=== PATIENT | male | born 1965 | race Caucasian/White ===

== ENCOUNTER → 2023-05-20 13:43 | Outpatient (BNVA) | payer OTHER, SELFPAY | PROVIDERS: PCP Internal Medicine Sports Medicine; Visit Provider Nurse Practitioner Family ==

== ENCOUNTER 2023-06-17 13:06 | Outpatient (REF) | payer OTHER, SELFPAY ==
--- NOTE | ~2023-06-17 | US_ITS ---
EXAMINATION: US RETROPERITONEAL LIMITED (RENAL ONLY) CLINICAL INFORMATION: Calculus of kidney. COMPARISON: None available. TECHNIQUE: Real-time imaging of the kidneys. FINDINGS: RIGHT KIDNEY: 15.0 x 6.5 x 7.6 cm (SAG x AP x TRV). The kidney is normal in size, contour, and echogenicity. Renal cortical thickness is normal. No calculi or focal parenchymal lesions. No hydronephrosis. LEFT KIDNEY: 13.8 x 5.9 x 5.0 cm (SAG x AP x TRV). Severe left hydroureteronephrosis with severe cortical thinning. No nephrolithiasis or focal parenchymal lesion. OTHER: Incidental note is made of sludge and stones within the gallbladder is suboptimally evaluated on this renal ultrasound. US/US renal BI IMPRESSION: 1. Severe left hydroureteronephrosis with severe cortical thinning. No nephrolithiasis appreciated. 2. Incidental note is made of sludge and stones within the gallbladder is suboptimally evaluated on this renal ultrasound.
== END 2023-06-17 13:07 | disposition home or self-care (01) ==
LOC: HO.US 13:06
PROVIDERS: PCP Internal Medicine Sports Medicine; Visit Provider Nurse Practitioner Family
DX: N20.0 Calculus of kidney (principal)
CPT/HCPCS: 76775

== ENCOUNTER 2023-07-01 14:04 | Outpatient (AMB) | payer OTHER, SELFPAY ==
--- NOTE | 2023-07-01 14:15 | A.OFFVIS_ITS ---
Intake Intake Visit Reasons: 1m/US(set) Intake Note: Patient present today for follow up visit nephrolithiasis/ultrasound (imaging 06/17/23) Urology Medications: none Blood Thinner: aspirin Mail Examiner Required: No Accompanied by: Self / Same As Patient Allergies No Known Allergies Allergy (Verified 07/02/23 10:29) Medication List - Last Reconciled 07/02/23 by Cathryn Ordoñez [facility]- allopurinol 300 mg PO DAILY aspirin 325 mg PO DAILY atenolol 100 mg PO DAILY atorvastatin 10 mg PO DAILY dulaglutide (Trulicity) 1.5 mg subcut QWEEK fluticasone propionate 50 mcg/actuation 1 spray intranasal BID levothyroxine 100 mcg PO QAM lisinopril 20 mg PO DAILY magnesium oxide 400 mg PO DAILY metformin 1,000 mg PO DAILY sitagliptin phosphate (Januvia) 100 mg PO DAILY spironolactone 12.5 mg PO DAILY HPI HPI Comments History of Present Illness Details Kit is a very pleasant 58-year-old male patient of Dr. Fairchild. He has a PMH of Castaneda's palsy, hypertension, GERD, gout, anxiety, hyperlipidemia, kidney stones, obesity, diabetes type 2, vitamin-D deficiency and peripheral neuropathy. He presents to the office today for a follow up. Of note, patient was seen approximately one month as a new patient for his longstanding history of nephrolithiasis at which time a renal ultrasound was ordered for further assessment evaluation. These results reviewed with the patient today. Right kidney with no calculi, lesions, and or hydronephrosis. Left kidney with no calculi and or lesions. However severe left hydrouretern ephrosis is present with sever cortical thinning. In discussion with the patient today he reports to be doing and feeling well. Patient reports previously following up with Dr. Mathis many years ago for his longstanding history of nephrolithiasis. He reports having had a left ESWL in the past and subsequently has lost most if not all renal function to his left kidney. He reports following up with Dr. Haley recently and it states right kidney is functioning at approximately 60% and left kidney functions at approximately 5%. He discusses having lost weight over the last year. He currently denies any urinary issues or concerns. He otherwise denies incontinence, nocturia, hematuria, dysuria, foul smelling urine, changes to urinary stream, flank pain, fever, and or chills. He does however report urinary urgency and frequency however does not find this bothersome to him at this time. He is happy with his current voiding parameters. When asked he reports to be following his PSAs with his primary care doctor. He reports previously having his PSA checked in September and it being within normal limits. In office urinalysis results reviewed with the patient today. Discussed workup for hydronephrosis as patient is unsure if he has had this in the past. Discussed obtaining nuclear renal scan for further assessment and evaluation. Patient is agreeable. He otherwise denies any issues or concnerns. 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 GERD (gastroesophageal reflux disease) Gout Hyperlipidemia Hypertension Obesity Peripheral neuropathy Recurrent kidney stones Vitamin D deficiency Review of Systems Const Reports as per HPI Eyes Reports no additional complaints ENT Reports no additional complaints Card Reports as per HPI Resp Reports no additional complaints GI Reports as per HPI Reports as per HPI Musc Reports no additional complaints Neuro Reports as per HPI Psych Reports as per HPI Endo Reports as per HPI Physical Exam Const General: cooperative, healthy appearing, comfortable, no acute distress, well developed, alert and awake Nutritional Appearance: overweight Orientation/consciousness: patient oriented x3 Limitations: no limitations HEENT Head: Yes normal to inspection, Yes normocephalic and Yes atraumatic Ears: hearing grossly normal bilaterally Eyes General: appearance normal, both eyes and all related structures Neck Neck: Yes normal visual inspection and Yes trachea midline Chest Chest palpation & inspection: normal inspection of the chest Resp Effort & Inspection: normal respiratory effort and able to speak in complete sentences Cardio Rate: regular rate GI Inspection: Yes normal to inspection General: Yes no CVA tenderness Back/Spine/Pelvis Back: no CVA tenderness Skin General skin exam: no rashes or lesions noted Neuro General: patient oriented x3 Extrem General: Yes normal to inspection Psych Appearance: grossly normal and well kempt Mental Status: mental status grossly normal Speech and movement: Normal speech and movement present and Clear speech present Affect: normal affect Attitude: cooperative Thought process: Normal thought process present Thought content: Normal thought content present Insight: Good insight present (Psych) Judgement: Good judgement present (Psych) Results AMB Urinalysis, Automated UA Leukoctes 0 Jose/uL Last Edit by AdTotumrosanna on 07/01/23 14:29 UA Nitrite Last Edit by AdTotumrosanna on 07/01/23 14:29 UA Urobilinogen 0.2 mg/dL Last Edit by EXPOlexi [employer] on 07/01/23 14:29 UA Protein 0 mg/dL Last Edit by AdTotumrosanna on 07/01/23 14:29 UA pH 6.0 Last Edit by AdTotumrosanna on 07/01/23 14:29 UA Blood 0 Nahum/uL Last Edit by EXPOe [employer] on 07/01/23 14:29 UA Specific [place] 1.020 Last Edit by [employer] on 07/01/23 14:29 UA Ketone Last Edit by AdTotumrosanna on 07/01/23 14:29 UA Bilirubin 0 mg/dL Last Edit by AdTotumrosanna on 07/01/23 14:29 UA Glucose 0 mg/dL Last Edit by AdTotumrosanna on 07/01/23 14:29 Results Reviewed Results Reviewed: Laboratory Last Values Urine pH (Auto) 6.0 07/01/23 14:16 Specific [place] (Auto) 1.020 07/01/23 14:16 Urine Protein (Auto) 0 mg/dL 07/01/23 14:16 Glucose (UA)(Auto) 0 mg/dL 07/01/23 14:16 Urine Blood (Auto) 0 Nahum/uL 07/01/23 14:16 Urine Bilirubin (Auto) 0 mg/dL 07/01/23 14:16 Urine Urobilinogen (Auto) 0.2 mg/dL 07/01/23 14:16 Leukocyte Esterase (Auto) 0 Jose/uL 07/01/23 14:16 Date of Service: 06/17/23 EXAMINATION: US RETROPERITONEAL LIMITED (RENAL ONLY) FINDINGS: RIGHT KIDNEY: 15.0 x 6.5 x 7.6 cm (SAG x AP x TRV). The kidney is normal in size, contour, and echogenicity. Renal cortical thickness is normal. No calculi or focal parenchymal lesions. No hydronephrosis. LEFT KIDNEY: 13.8 x 5.9 x 5.0 cm (SAG x AP x TRV). Severe left hydroureteronephrosis with severe cortical thinning. No nephrolithiasis or focal parenchymal lesion. OTHER: Incidental note is made of sludge and stones within the gallbladder is suboptimally evaluated on this renal ultrasound. IMPRESSION: 1.? Severe left hydroureteronephrosis with severe cortical thinning. No nephrolithiasis appreciated. 2.? Incidental note is made of sludge and stones within the gallbladder is suboptimally evaluated on this renal ultrasound. Assessment & Plan Assessment & Plan (1) Hydronephrosis: Code(s): N13.30 - Unspecified hydronephrosis (2) Recurrent kidney stones: Code(s): N20.0 - Calculus of kidney Plan In office urinalysis results reviewed with the patient today; as noted above. Recent renal ultrasound results reviewed with the patient today; as noted above. Will obtain nuclear renal scan for further assessment evaluation of noted severe left-sided hydronephrosis. Discussed at length potential causes for hydronephrosis. Will obtain BUN and creatinine. Patient otherwise denies any bothersome urinary issues or concerns at this time. Discussed, educated, and encouraged on the importance of drinking plenty of water daily. Discussed adding 1 oz of lemon juice to water daily. Follow-up in 1 month with imaging to be completed prior or sooner with any issues, concerns, and or questions. Orders: Orders NM renal flow w pharm int 07/01/23 N13.30 - Unspecified hydronephrosis Blood Urea Nitrogen 07/01/23 R39.15 - Urgency of urination Creatinine 07/01/23 R39.15 - Urgency of urination AMB Urinalysis Automated 07/01/23 Z13.9 - Encounter for screening, unspecified Patient Instructions: The patient had an opportunity to ask questions regarding the treatment plan. All questions were answered. Physical exam, labs, and imaging were discussed and reviewed in detail. As well as risks, benefits, and discussion of treatment choices. No major barriers to understanding were identified. The patient expressed understanding and agreement with the above treatment plan. The patient was made aware they should contact our office by phone for worsening of their current condition, the appearance of new symptoms, or with any questions or concerns. Compliance is encouraged with any medications and follow up testing that is ordered. It is a privilege to be allowed the opportunity to participate in? your urological care.? Again, if you have any questions or concerns If you have any questions or concerns please do not hesitate to contact me. The office is [phone]. This note is constructed using voice recognition software. While every effort has been made to ensure accuracy computer field technician errors may have been included. Yours sincerely, LINDA Fair Coding Level of Care Code Est Pt Level 3 (39462) Diagnoses Hydronephrosis N13.30 Recurrent kidney stones N20.0
== END 2023-07-01 14:46 | disposition home or self-care (01) ==
PROVIDERS: PCP Internal Medicine Sports Medicine; Visit Provider Nurse Practitioner Family
DX: N13.30 Unspecified hydronephrosis (principal); N20.0 Calculus of kidney
CPT/HCPCS: 99213

== ENCOUNTER → 2023-07-01 14:04 | Outpatient (BNVA) | payer OTHER, SELFPAY | PROVIDERS: PCP Internal Medicine Sports Medicine; Visit Provider Nurse Practitioner Family ==

== ENCOUNTER → 2023-09-08 10:40 | Outpatient (REF) | payer OTHER, SELFPAY ==
--- NOTE | ~2023-09-08 | NM_ITS ---
EXAMINATION: RENAL DYNAMIC IMAGING STUDY CLINICAL INFORMATION: Unspecified hydronephrosis. COMPARISON: No previous bone scan or radiographs are available for comparison. Renal ultrasound dated 06/17/2023 is available for comparison. TECHNIQUE: Serial gamma scintillation camera images were obtained over the posterior trunk during the initial transit and subsequent distribution of a bolus intravenous injection of 10 mCi of Tc-99m DTPA. At 30 minutes later, 40 mg of Lasix was administered intravenously and an additional 30 minutes of images obtained. FINDINGS: Initial rapid sequence images show prompt and normal-appearing flow to the right kidney. Flow to the left kidney is not definitely visualized. Subsequent sequential static images obtained up to 30 minutes show good concentration in the right kidney. The left kidney is not definitely visualized at any time during the study. There is evidence of excretory function by 3 minutes post injection on the right and shortly thereafter some urinary bladder activity is visualized. At 30 minutes post injection almost all the excretory activity is in the urinary bladder. There is no abnormal retention in the right renal collecting system and there continues to be no visualization of the left kidney. There is transient retention of activity in the mid right ureter, probably at the pelvic inlet beginning at about 8 to 10 minutes post injection and completely washed out by 20 minutes post injection. Following Lasix administration, there is continued clearance of activity from the right kidney and filling of the urinary bladder but no change in the nonvisualization of the left kidney. Meaningful T-1/2 washout times following Lasix administration cannot be calculated on either side. On the left no excretory function is visualized, and on the right there is insufficient retention in the right renal collecting system at the time of Lasix administration. The relative function of the two kidneys based on the 2-3 minute images are: Left 0% and right 100%. NM/NM renal flow w pharm int IMPRESSION: LEFT KIDNEY: Absent or nonfunctioning. No significant flow or function of the left kidney is visualized. RIGHT KIDNEY: Normal perfusion and function. No hydronephrosis or outflow obstruction.
== END ==
LOC: HO.NUCMED 10:40
PROVIDERS: PCP Internal Medicine Sports Medicine; Visit Provider Nurse Practitioner Family
DX: N13.30 Unspecified hydronephrosis (principal)
CPT/HCPCS: 78708; A9539; J1940

== ENCOUNTER 2023-09-15 06:18 | Outpatient (REF) | payer OTHER, SELFPAY ==
[2023-09-15 07:53] LABS: Blood Urea Nitrogen 33 mg/dL (9-16); Estimated Glomerular Filt Rate 49
== END 2023-09-15 06:19 | disposition home or self-care (01) ==
LOC: HO.LAB 06:18
PROVIDERS: PCP Internal Medicine Sports Medicine; Visit Provider Nurse Practitioner Family
DX: R39.15 Urgency of urination (principal)
CPT/HCPCS: 36415; 82565; 84520

== ENCOUNTER 2023-09-16 10:03 | Outpatient (AMB) | payer OTHER, SELFPAY ==
--- NOTE | 2023-09-16 10:23 | A.OFFVIS_ITS ---
Intake Intake Visit Reasons: 1m/US/labs Intake Note: Patient present today for follow up visit hydronephrosis/renal scan (imaging 09/08/23) Urology Medications: none Blood Thinner: aspirin Vamp Strap Ironer Required: No Accompanied by: Self / Same As Patient Allergies No Known Allergies Allergy (Verified 09/17/23 08:30) Medication List - Last Reconciled 09/17/23 by Cathryn Ordoñez [facility]- allopurinol 300 mg PO DAILY aspirin 325 mg PO DAILY atenolol 100 mg PO DAILY atorvastatin 10 mg PO DAILY dulaglutide (Trulicity) 1.5 mg subcut QWEEK fluticasone propionate 50 mcg/actuation 1 spray intranasal BID levothyroxine 100 mcg PO QAM lisinopril 20 mg PO DAILY magnesium oxide 400 mg PO DAILY metformin 1,000 mg PO DAILY sitagliptin phosphate (Januvia) 100 mg PO DAILY spironolactone 12.5 mg PO DAILY HPI HPI Comments History of Present Illness Details Kit is a very pleasant 58-year-old male patient of Dr. Fairchild was accompanied by his significant other at today's office visit. He has a PMH of Castaneda's palsy, hypertension, GERD, gout, anxiety, hyperlipidemia, kidney stones, obesity, diabetes type 2, vitamin-D deficiency and peripheral neuropathy. He presents to the office today for a follow up. Of note, patient was seen approximately 2 months ago at which time a nuclear renal scan was ordered and performed as recent renal imaging results noted severe left-sided hydronephrosis. These results were reviewed with the patient and his significant other today. The relative function of the 2 kidneys based on a 2-3 minute images are: Left 0% and right 100%. The left kidney is absent or nonfunctioning. No significant flow or function of the kidney is visualized. The right kidney with normal perfusion and function no hydronephrosis or outflow obstruction. BUN and creatinines as follows: 03/30/22--BUN--25, creatinine--1.1 09/15/23--BUN--33, creatinine 1.48 When asked patient reports to be following up with Dr. Haley for nephrology. He discusses following up with him atleast annually. Discussed at length results of nuclear renal scan. Patient reports following up with Dr. Mathis previously for his longstanding history of nephrolithiasis. He reports having had a left ESWL in the past and subsequently has lost most if not all renal function to his left kidney. He reports following up with Dr. Haley recently and was told his right kidney is functioning at approximately 60% and left kidney functions at approximately 5%. He discusses having lost weight over the last year. He currently denies any urinary issues or concerns. He otherwise denies incontinence, nocturia, hematuria, dysuria, foul smelling urine, changes to urinary stream, flank pain, fever, and or chills. He does however report urinary urgency and frequency however does not find this bothersome to him at this time and relates this to his increase in water intake as he drinks plenty of water daily for stone prevention. He is happy with his current voiding parameters. When asked he reports to be following his PSAs with his primary care doctor. He reports previously having his PSA checked in September and it being within normal limits. In office urinalysis results reviewed with the patient today. Discussed at length importance of following up with Nephrology and keeping scheduled appointments as well as continuing to drink plenty of water daily in attempt to avoid nephrolithiasis. He otherwise denies any bothersome urinary issues or concerns at this time. 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 GERD (gastroesophageal reflux disease) Gout Hyperlipidemia Hypertension Obesity Peripheral neuropathy Recurrent kidney stones Vitamin D deficiency Review of Systems Const Reports as per HPI Eyes Reports no additional complaints ENT Reports no additional complaints Card Reports as per HPI Resp Reports no additional complaints GI Reports as per HPI Reports as per HPI Musc Reports no additional complaints Neuro Reports as per HPI Psych Reports as per HPI Endo Reports as per HPI Physical Exam Const General: cooperative, healthy appearing, comfortable, no acute distress, well developed, alert and awake Nutritional Appearance: overweight Orientation/consciousness: patient oriented x3 Limitations: no limitations HEENT Head: Yes normal to inspection, Yes normocephalic and Yes atraumatic Ears: hearing grossly normal bilaterally Eyes General: appearance normal, both eyes and all related structures Neck Neck: Yes normal visual inspection and Yes trachea midline Chest Chest palpation & inspection: normal inspection of the chest Resp Effort & Inspection: normal respiratory effort and able to speak in complete sentences Cardio Rate: regular rate GI Inspection: Yes normal to inspection General: Yes no CVA tenderness Back/Spine/Pelvis Back: no CVA tenderness Skin General skin exam: no rashes or lesions noted Neuro General: patient oriented x3 Extrem General: Yes normal to inspection Psych Appearance: grossly normal and well kempt Mental Status: mental status grossly normal Speech and movement: Normal speech and movement present and Clear speech present Affect: normal affect Attitude: cooperative Thought process: Normal thought process present Thought content: Normal thought content present Insight: Good insight present (Psych) Judgement: Good judgement present (Psych) Results AMB Urinalysis, Automated UA Leukoctes 0 Jose/uL Last Edit by VitaFlavor on 09/16/23 11:02 UA Nitrite Negative Last Edit by VitaFlavor on 09/16/23 11:02 UA Urobilinogen 0.2 mg/dL Last Edit by VitaFlavor on 09/16/23 11:02 UA Protein 15 mg/dL Last Edit by [employer]itaFlavor on 09/16/23 11:02 UA pH 5.5 Last Edit by [employer]itaFlavor on 09/16/23 11:02 UA Blood 0 Nahum/uL Last Edit by VitaFlavor on 09/16/23 11:02 UA Specific [place] 1.025 Last Edit by VitaFlavor on 09/16/23 11:02 UA Ketone Negative Last Edit by VitaFlavor on 09/16/23 11:02 UA Bilirubin 0 mg/dL Last Edit by [employer] on 09/16/23 11:02 UA Glucose 0 mg/dL Last Edit by [employer]itaFlavor on 09/16/23 11:02 Results Reviewed Results Reviewed: Laboratory Last Values Urine pH (Auto) 5.5 09/16/23 11:01 Specific [place] (Auto) 1.025 09/16/23 11:01 Urine Protein (Auto) 15 mg/dL 09/16/23 11:01 Glucose (UA)(Auto) 0 mg/dL 09/16/23 11:01 Urine Ketones (Auto) Negative 09/16/23 11:01 Urine Blood (Auto) 0 Nahum/uL 09/16/23 11:01 Urine Nitrite (Auto) Negative 09/16/23 11:01 Urine Bilirubin (Auto) 0 mg/dL 09/16/23 11:01 Urine Urobilinogen (Auto) 0.2 mg/dL 09/16/23 11:01 Leukocyte Esterase (Auto) 0 Jose/uL 09/16/23 11:01 Date of Service: 09/08/23 EXAMINATION: RENAL DYNAMIC IMAGING STUDY FINDINGS: Initial rapid sequence images show prompt and normal-appearing flow to the right kidney. Flow to the left kidney is not definitely visualized. Subsequent sequential static images obtained up to 30 minutes show good concentration in the right kidney. The left kidney is not definitely visualized at any time during the study. There is evidence of excretory function by 3 minutes post injection on the right and shortly thereafter some urinary bladder activity is visualized. At 30 minutes post injection almost all the excretory activity is in the urinary bladder. There is no abnormal retention in the right renal collecting system and there continues to be no visualization of the left kidney. There is transient retention of activity in the mid right ureter, probably at the pelvic inlet beginning at about 8 to 10 minutes post injection and completely washed out by 20 minutes post injection. Following Lasix administration, there is continued clearance of activity from the right kidney and filling of the urinary bladder but no change in the nonvisualization of the left kidney. Meaningful T-1/2 washout times following Lasix administration cannot be calculated on either side. On the left no excretory function is visualized, and on the right there is insufficient retention in the right renal collecting system at the time of Lasix administration. The relative function of the two kidneys based on the 2-3 minute images are: Left 0% and right 100%. IMPRESSION: LEFT KIDNEY: Absent or nonfunctioning. No significant flow or function of the left kidney is visualized. RIGHT KIDNEY: Normal perfusion and function. No hydronephrosis or outflow obstruction. Assessment & Plan Assessment & Plan (1) Hydronephrosis: Code(s): N13.30 - Unspecified hydronephrosis (2) Recurrent kidney stones: Code(s): N20.0 - Calculus of kidney (3) BPH (benign prostatic hyperplasia): Code(s): N40.0 - Benign prostatic hyperplasia without lower urinary tract symptoms Plan In office urinalysis results reviewed with the patient today. Recent nuclear renal scan results reviewed with the patient is significant other today. BUN and creatinine reviewed Continue to follow up with Nephrology; discussed at length importance of doing so Will continue with surveillance monitoring of patient's longstanding history of nephrolithiasis Continue adding 1 oz of lemon juice to water daily. Educated, encouraged, and stressed the importance of drinking plenty of water daily. Renal ultrasound in 6 months. Follow-up in 6 months with labs and imaging to be completed prior; or sooner with any issues, concerns, and or questions. Orders: Orders US renal BI 6 Months N20.0 - Calculus of kidney Blood Urea Nitrogen 09/16/23 N13.30 - Unspecified hydronephrosis, N20.0 - Calculus of kidney Creatinine 09/16/23 N13.30 - Unspecified hydronephrosis, N20.0 - Calculus of kidney Prostate Specific Antigen 6 Months N40.0 - Benign prostatic hyperplasia without lower urinary tract symptoms AMB Urinalysis Automated 09/16/23 Z13.9 - Encounter for screening, unspecified Patient Instructions: The patient had an opportunity to ask questions regarding the treatment plan. All questions were answered. Physical exam, labs, and imaging were discussed and reviewed in detail. As well as risks, benefits, and discussion of treatment choices. No major barriers to understanding were identified. The patient expressed understanding and agreement with the above treatment plan. The patient was made aware they should contact our office by phone for worsening of their current condition, the appearance of new symptoms, or with any questions or concerns. Compliance is encouraged with any medications and follow up testing that is ordered. It is a privilege to be allowed the opportunity to participate in? your urological care.? Again, if you have any questions or concerns If you have any questions or concerns please do not hesitate to contact me. The office is [phone]. This note is constructed using voice recognition software. While every effort has been made to ensure accuracy manager front errors may have been included. Yours sincerely, LINDA Fair Coding Level of Care Code Est Pt Level 3 (99169) Diagnoses Hydronephrosis N13.30 Recurrent kidney stones N20.0 BPH (benign prostatic hyperplasia) N40.0
== END 2023-09-16 11:48 | disposition home or self-care (01) ==
PROVIDERS: PCP Internal Medicine Sports Medicine; Visit Provider Nurse Practitioner Family
DX: N13.30 Unspecified hydronephrosis (principal); N20.0 Calculus of kidney; N40.0 Benign prostatic hyperplasia without lower urinary tract symptoms
CPT/HCPCS: 99213

== ENCOUNTER → 2023-09-16 10:03 | Outpatient (BNVA) | payer OTHER, SELFPAY | PROVIDERS: PCP Internal Medicine Sports Medicine; Visit Provider Nurse Practitioner Family | DX: N13.30 Unspecified hydronephrosis (principal); N40.0 Benign prostatic hyperplasia without lower urinary tract symptoms; Z87.442 Personal history of urinary calculi | CPT/HCPCS: 81003 ==

== ENCOUNTER 2024-03-17 12:30 | Outpatient (REF) | payer OTHER, SELFPAY ==
--- NOTE | ~2024-03-17 | US_ITS ---
EXAMINATION: US RETROPERITONEAL LIMITED (RENAL ONLY) CLINICAL INFORMATION: Calculus of kidney. COMPARISON: Renal ultrasound 06/17/2023. TECHNIQUE: Real-time imaging of the kidneys. FINDINGS: The right kidney is 14 x 6 x 8 cm. There is no hydronephrosis. No stone is seen here. The upper pole is not adequately evaluated. A lesion cannot be excluded. Appears hyperechoic on this study. On image 3 this area of hyperechogenicity measures approximately 3.1 x 2.7 cm The left kidney is 13.8 x 6 x 7 cm. There is significant hydronephrosis. Cortex is not adequately evaluated. Incidental sludge in the gallbladder is noted US/US renal BI IMPRESSION: Once again significant hydronephrosis is seen on the left. This is certainly not improved and may be slightly worsened from previous. Etiology is indeterminate. On the right there is no hydronephrosis or stone but the upper pole is not adequately visualized. It is hyperechoic and therefore lesion or other abnormality such as nephritis cannot be excluded. Recommend pre and postcontrast CT to fully evaluate. This would also evaluate the etiology of the left-sided hydronephrosis
[2024-03-17 15:15] LABS: Blood Urea Nitrogen 27 mg/dL (9-16); Estimated Glomerular Filt Rate > 60
== END 2024-03-17 12:31 | disposition home or self-care (01) ==
LOC: HO.US 12:30
PROVIDERS: PCP Internal Medicine Sports Medicine; Visit Provider Nurse Practitioner Family
DX: N20.0 Calculus of kidney (principal); N13.30 Unspecified hydronephrosis
CPT/HCPCS: 36415; 76775; 82565; 84520

== ENCOUNTER 2024-03-18 09:17 | Outpatient (AMB) | payer OTHER, SELFPAY ==
--- NOTE | 2024-03-18 09:29 | A.OFFVIS_ITS ---
Intake Visit Reasons: 6m follow up/US/labs Intake Note: Patient present today for follow up visit hydronephrosis, ultrasound and lab results Imagin03/17/24 PSA: Pending Urology Medications: none Blood Thinner: aspirin Game Advisor Required: No Accompanied by: Self / Same As Patient Allergies No Known Allergies Allergy (Verified 03/18/24 09:30) HPI Comments Details: Kit is a very pleasant 59-year-old male patient of Dr. Fairchild was accompanied by his significant other at today's office visit. He has a PMH of Castaneda's palsy, hypertension, GERD, gout, anxiety, hyperlipidemia, kidney stones, obesity, diabetes type 2, vitamin-D deficiency and peripheral neuropathy. He presents to the office today for a follow up of his nephrolithiasis and left- sided hydronephrosis. Recent renal imaging results reviewed with the patient today right kidney with no hydronephrosis or renal calculi. Possible hyperechoic area that measures approximately 3.1 cm. There is significant left- sided hydronephrosis. Recent BUN and creatinine results as well as PSA results reviewed with the patient today. As noted and trended below. When asked she currently denies any bothersome urinary issues or concerns. He discusses his recent change in hours at work and has since been able to lose approximately 15 lb. He reports be feeling and doing well. Previous workup has included a Lasix renogram as patient with longstanding history of severe left-sided hydronephrosis. Imaging noted the relative function of the 2 kidneys based on a 2-3 minute images are: Left 0% and right 100%. The left kidney is absent or nonfunctioning. No significant flow or function of the kidney is visualized. The right kidney with normal perfusion and function no hydronephrosis or outflow obstruction. BUN and creatinine are as follows: BUN: 04/13 25, 09/14 33 03/16 27 Creatinine: 04/13 1.1, 09/14 1.48, 03/16 1.20 PSA: 03/16 1.0. When asked patient reports to be following up with Dr. Haley for nephrology. He discusses following up with him annually. Patient previously followed with Dr. Mathis for his longstanding history of nephrolithiasis. 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 He otherwise denies incontinence, nocturia, hematuria, dysuria, foul smelling urine, changes to urinary stream, flank pain, fever, and or chills. He does however report urinary urgency and frequency however does not find this bothersome to him at this time and relates this to his increase in water intake as he drinks plenty of water daily for stone prevention. He is happy with his current voiding parameters. In office urinalysis results reviewed with the patient today. Discussed at length importance of following up with Nephrology and keeping scheduled appointments as well as continuing to drink plenty of water daily in attempt to avoid nephrolithiasis. He otherwise denies any bothersome urinary issues or concerns at this time. [facility] Medical History Vitamin D deficiency Peripheral neuropathy Diabetic neuropathy associated with type 2 diabetes mellitus Obesity Recurrent kidney stones Hyperlipidemia Anxiety Gout GERD (gastroesophageal reflux disease) Hypertension Castaneda's palsy Review of Systems Const Reports as per HPI Eyes Reports no additional complaints ENT Reports no additional complaints Card Reports as per HPI Resp Reports no additional complaints GI Reports as per HPI Reports as per HPI Musc Reports no additional complaints Neuro Reports as per HPI Psych Reports as per HPI Endo Reports as per HPI Physical Exam Const General: cooperative, healthy appearing, comfortable, no acute distress, well developed, alert and awake Nutritional Appearance: overweight Orientation/consciousness: patient oriented x3 Limitations: no limitations HEENT Head: Yes normal to inspection, Yes normocephalic and Yes atraumatic Ears: hearing grossly normal bilaterally Eyes General: appearance normal, both eyes and all related structures Neck Neck: Yes normal visual inspection and Yes trachea midline Chest Chest palpation & inspection: normal inspection of the chest Resp Effort & Inspection: normal respiratory effort and able to speak in complete sentences Cardio Rate: regular rate GI Inspection: Yes normal to inspection General: Yes no CVA tenderness Back/Spine/Pelvis Back: no CVA tenderness Skin General skin exam: no rashes or lesions noted Neuro General: patient oriented x3 Extrem General: Yes normal to inspection Psych Appearance: grossly normal and well kempt Mental Status: mental status grossly normal Speech and movement: Normal speech and movement present and Clear speech present Affect: normal affect Attitude: cooperative Thought process: Normal thought process present Thought content: Normal thought content present Insight: Good insight present (Psych) Judgement: Good judgement present (Psych) Results AMB Urinalysis, Automated UA Leukoctes 0 Jose/uL Last Edit by Trinity-Nobleelbert Peña on 03/18/24 09:47 UA Nitrite Negative Last Edit by Ledzworldlexi Peña on 03/18/24 09:47 UA Urobilinogen 0.2 mg/dL Last Edit by PaulOopsLablexi Peña on 03/18/24 09:47 UA Protein 0 mg/dL Last Edit by Ledzworldlexi NatureWorksrosanna on 03/18/24 09:47 UA pH 6.0 Last Edit by Ledzworldlexi [employer]anna on 03/18/24 09:47 UA Blood 0 Nahum/uL Last Edit by [employer] S[employer] Advisorsrosanna on 03/18/24 09:47 UA Specific [place] 1.015 Last Edit by [employer] Advisorsrosanna on 03/18/24 09:47 UA Ketone Negative Last Edit by Ledzworldlexi [employer]rosanna on 03/18/24 09:47 UA Bilirubin 0 mg/dL Last Edit by [employer] Advisorsrosanna on 03/18/24 09:47 UA Glucose 0 mg/dL Last Edit by Ledzworldlexi [employer]rosanna on 03/18/24 09:47 Results Reviewed Results Reviewed: Laboratory Last Values Urine pH (Auto) 6.0 03/18/24 09:30 Specific [place] (Auto) 1.015 03/18/24 09:30 Urine Protein (Auto) 0 mg/dL 03/18/24 09:30 Glucose (UA)(Auto) 0 mg/dL 03/18/24 09:30 Urine Ketones (Auto) Negative 03/18/24 09:30 Urine Blood (Auto) 0 Nahum/uL 03/18/24 09:30 Urine Nitrite (Auto) Negative 03/18/24 09:30 Urine Bilirubin (Auto) 0 mg/dL 03/18/24 09:30 Urine Urobilinogen (Auto) 0.2 mg/dL 03/18/24 09:30 Leukocyte Esterase (Auto) 0 Jose/uL 03/18/24 09:30 Date of Service: 03/17/24 EXAMINATION: US RETROPERITONEAL LIMITED (RENAL ONLY) FINDINGS: The right kidney is 14 x 6 x 8 cm. There is no hydronephrosis. No stone is seen here. The upper pole is not adequately evaluated. A lesion cannot be excluded. Appears hyperechoic on this study. On image 3 this area of hyperechogenicity measures approximately 3.1 x 2.7 cm The left kidney is 13.8 x 6 x 7 cm. There is significant hydronephrosis. Cortex is not adequately evaluated. Incidental sludge in the gallbladder is noted US/US renal BI IMPRESSION: Once again significant hydronephrosis is seen on the left. This is certainly not improved and may be slightly worsened from previous. Etiology is indeterminate. On the right there is no hydronephrosis or stone but the upper pole is not adequately visualized. It is hyperechoic and therefore lesion or other abnormality such as nephritis cannot be excluded. Recommend pre and postcontrast CT to fully evaluate. This would also evaluate the etiology of the left-sided hydronephrosis. Assessment & Plan Assessment & Plan (1) Hydronephrosis: Code(s): N13.30 - Unspecified hydronephrosis Category: Medical (2) Recurrent kidney stones: Code(s): N20.0 - Calculus of kidney Category: Medical Plan In office urinalysis results reviewed with the patient today; as noted above. Recent renal imaging results reviewed with the patient today; as noted above. BUN, creatinine, and PSA results reviewed and trended with the patient as noted above. Patient currently denies any bothersome urinary issues or concerns. Discussed, educated, and stressed the importance of drinking plenty of water daily. Will obtain renal ultrasound in 6 months as well as BUN and creatinine. Follow-up in 6 months with imaging and labs to be completed prior; or sooner with any issues, concerns, and or questions. Orders: Orders AMB Urinalysis Automated 03/18/24 Z13.9 - Encounter for screening, unspecified Creatinine 6 Months N13.30 - Unspecified hydronephrosis, N20.0 - Calculus of kidney Blood Urea Nitrogen 6 Months N13.30 - Unspecified hydronephrosis, N20.0 - Calculus of kidney US renal BI 6 Months N13.30 - Unspecified hydronephrosis, N20.0 - Calculus of kidney Patient Instructions: The patient had an opportunity to ask questions regarding the treatment plan. All questions were answered. Physical exam, labs, and imaging were discussed and reviewed in detail. As well as risks, benefits, and discussion of treatment choices. No major barriers to understanding were identified. The patient expressed understanding and agreement with the above treatment plan. The patient was made aware they should contact our office by phone for worsening of their current condition, the appearance of new symptoms, or with any questions or concerns. Compliance is encouraged with any medications and follow up testing that is ordered. It is a privilege to be allowed the opportunity to participate in? your urological care.? Again, if you have any questions or concerns If you have any questions or concerns please do not hesitate to contact me. The office is [phone]. This note is constructed using voice recognition software. While every effort has been made to ensure accuracy hybrid car mechanic errors may have been included. Yours sincerely, LINDA Fair Coding Level of Care Code Est Pt Level 3 (67975) Diagnoses Hydronephrosis N13.30 Recurrent kidney stones N20.0
== END 2024-03-18 09:58 | disposition home or self-care (01) ==
PROVIDERS: PCP Internal Medicine Sports Medicine; Visit Provider Nurse Practitioner Family
DX: Z13.9 Encounter for screening, unspecified (principal)
CPT/HCPCS: 99213

== ENCOUNTER → 2024-03-18 09:17 | Outpatient (BNVA) | payer OTHER, SELFPAY | PROVIDERS: PCP Internal Medicine Sports Medicine; Visit Provider Nurse Practitioner Family ==

== ENCOUNTER 2024-03-18 09:28 | Outpatient (REF) | payer OTHER, SELFPAY | END 2024-03-18 09:29 | disposition home or self-care (01) | LOC: HO.10HDL 09:28 | PROVIDERS: Visit Provider Nurse Practitioner Family | DX: Z12.5 Encounter for screening for malignant neoplasm of prostate (principal); N13.30 Unspecified hydronephrosis; N20.0 Calculus of kidney | CPT/HCPCS: 36415; 81003; 84153 ==

== ENCOUNTER 2024-09-13 10:39 | Outpatient (REF) | payer OTHER, SELFPAY | END 2024-09-13 10:40 | disposition home or self-care (01) | LOC: HO.US 10:39 | PROVIDERS: PCP Internal Medicine Sports Medicine; Visit Provider Nurse Practitioner Family | DX: N13.30 Unspecified hydronephrosis (principal); N20.0 Calculus of kidney | CPT/HCPCS: 76775 ==

== ENCOUNTER 2024-11-07 08:21 | Outpatient (AMB) | payer OTHER, SELFPAY ==
--- OUTSIDE RECORDS SUMMARY | 2024-11-07 08:23 | XMS_ITS | Continuity of Care Document ---
Author Organization [facility] Address [address] [place] [address]- Care Team Providers Care Licensing Engineer Name Role Phone Devorah RANDALL, Randy Martinez Primary Care Physician [phone] Encounter [facility] [place] Date(s): 09/28/24 - 10/28/24 [facility] [address] [place], [place] [address] Encounter Type: Triage Allergies, Adverse Reactions, Alerts Substance Criticality Severity Reaction Reaction Severity Status Pollen Active Immunizations Given and Recorded Vaccine Date Status Refusal Reason tetanus/diphtheria/pertussis, acel(Tdap) 1 09/27/24 Given influenza virus vaccine, inactivated 2 09/27/24 Gi rehana influenza virus vaccine, inactivated 09/22/23 Alexandre rded influenza virus vaccine, inactivated 10/15/22 Alexandre rded influenza virus vaccine, inactivated 10/09/21 Alexandre rded influenza virus vaccine, inactivated 09/14/20 Alexandre rded influenza virus vaccine, inactivated 08/18/12 Alexandre rded SARS-CoV-2 mRNA ([id number]) vax 12/31/21 Given SARS-CoV-2 (COVID-19) mRNA BNT-162b2 vac 12/24/20 Recorded SARS-CoV-2 (COVID-19) mRNA BNT-162b2 vac 12/03/20 Recorded 1Result Comment: [id number] 2Result Comment: [facility]: [id number] Medications allopurinol 300 mg oral tablet 1, tablet, By Mouth, Daily, # 90 tablet, Refills 1, Maintenance, 07/28/24 5:32:00 PM EDT, Route to Pharmacy Electronically, [id number], 170, cm, 05/18/24 16:46:00 EDT, Height, 118.5, kg, 03/02/24 4:47:00 EDT, Dry Weight Start Date: 07/28/24 Status: Ordered Quantity: 90.0 Unit: tablet Repeat number: 1 aspirin 81 mg oral delayed release tablet 1 tablet = 81 mg, By Mouth, Daily, # 90 tablet, 1 Refills, Maintenance, 08/04/22 1:20:00 PM EDT, EC Tablet, [facility]/pharmacy #[id number], Partial fill upon patient request if the prescription is for a schedule II opioid drug., 170, cm, 06/17/22 10:11:00 EDT, Height, 120.1, kg, 04/11/22 11:07:00 EDT, Dry Weight Start Date: 08/04/22 Status: Ordered Quantity: 90.0 Unit: tablet Repeat number: 2 atenolol 100 mg oral tablet 1 tablet, By Mouth, Daily, # 90 tablet, 1 Refills, Maintenance, 08/08/24 4:39:00 PM EDT, [id number], 170, cm, 05/18/24 16:46:00 EDT, Height, 118.5, kg, 03/02/24 4:47:00 EDT, Dry Weight Start Date: 08/08/24 Status: Ordered Quantity: 90.0 Unit: tablet Repeat number: 1 atorvastatin 10 mg oral tablet 1 tablet, By Mouth, Daily at bedtime, # 90 tablet, 1 Refills, Maintenance, 08/08/24 4:39:00 PM EDT, [id number], 170, cm, 05/18/24 16:46:00 EDT, Height, 118.5, kg, 03/02/24 4:47:00 EDT, Dry Weight Start Date: 08/08/24 Status: Ordered Quantity: 90.0 Unit: tablet Repeat number: 1 Januvia 100 mg oral tablet 1 tablet, By Mouth, Daily, # 90 tablet, 1 Refills, Maintenance, 08/29/24 8:36:00 PM EDT, [id number], 170, cm, 05/18/24 16:46:00 EDT, Height, 118.5, kg, 03/02/24 4:47:00 EDT, Dry Weight Start Date: 08/29/24 Status: Ordered Quantity: 90.0 Unit: tablet Repeat number: 1 levothyroxine 0.1 mg oral tablet 1 tablet, By Mouth, Daily before breakfast, # 90 tablet, 1 Refills, Maintenance, 08/19/24 12:31:00 AM EDT, [facility]/pharmacy #[id number], 170, cm, 05/18/24 16:46:00 EDT, Height, 118.5, kg, 03/02/24 4:47:00 EDT, Dry Weight Start Date: 08/19/24 Status: Ordered Quantity: 90.0 Unit: tablet Repeat number: 2 lisinopril 20 mg oral tablet 10 mg, 0.5, tablet, By Mouth, Daily, dose reduction 09/27/24 due to hyperkalemia, # 90 tablet, Refills 1, Maintenance, 06/03/24 11:46:00 AM EDT, Route to Pharmacy Electronically, [id number], 170, cm, 05/18/24 16:46:00 EDT, Height, 118.5, kg, 03/02/24 4:47:00 EDT, Dry Weight Start Date: 06/03/24 Status: Ordered Quantity: 90.0 Unit: tablet Repeat number: 1 magnesium oxide 400 mg oral tablet 1 tablet, By Mouth, Daily, # 90 tablet, 1 Refills, Maintenance, 05/17/24 1:47:00 PM EDT, [facility]/pharmacy #[id number], 170, cm, 05/17/24 13:11:00 EDT, Height, 118.5, kg, 03/02/24 4:47:00 EDT, Dry Weight Start Date: 05/17/24 Status: Ordered Quantity: 90.0 Unit: tablet Repeat number: 2 metFORMIN 1000 mg oral tablet 1 tablet = 1,000 mg, By Mouth, 2 times a day, dose increase, # 180 tablet, 3 Refills, Maintenance, 01/25/24 9:17:00 AM EST, Tablet, [facility]/pharmacy #[id number], Partial fill upon patient request if the prescription is for a schedule II opioid drug., 170, cm, 08/24/23 16:09:00 EDT, Height, 123.4, kg, 08/24/23 16:09:00 EDT, Dry Weight Start Date: 01/25/24 Status: Ordered Quantity: 180.0 Unit: tablet Repeat number: 4 One Touch Ultra 2 Glucose Meter See Instructions, # 1 each, Refills 0, Tot. Refills 0, Maintenance, to check FSG once daily for DM II with neuropathy, 10/03/24 8:29:00 AM EST, Supply, 170, cm, 09/27/24 10:31:00 EST, Height, 116, kg, 09/27/24 10:31:00 EST, Dry Weight Start Date: 10/03/24 Stop Date: 11/02/24 Status: Ordered Quantity: 1.0 Unit: each Repeat number: 1 Indication: Type 2 diabetes mellitus with other diabetic neurological complication One Touch Ultra Test Strips See Instructions, # 100 each, Refills 3, Tot. Refills 3, Maintenance, to check FSG once daily for DM II with neuropathy, 10/03/24 8:29:00 AM EST, Supply, 170, cm, 09/27/24 10:31:00 EST, Height, 116, kg, 09/27/24 10:31:00 EST, Dry Weight Start Date: 10/03/24 Status: Ordered Quantity: 100.0 Unit: each Repeat number: 4 Indication: Type 2 diabetes mellitus with other diabetic neurological complication One Touch UltraSoft Lancets See Instructions, # 100 each, Refills 3, Tot. Refills 3, Maintenance, to check FSG once daily for DM II with neuropathy, 10/03/24 8:29:00 AM EST, Supply, 170, cm, 09/27/24 10:31:00 EST, Height, 116, kg, 09/27/24 10:31:00 EST, Dry Weight Start Date: 10/03/24 Stop Date: 01/31/25 Status: Ordered Quantity: 100.0 Unit: each Repeat number: 4 Indication: Type 2 diabetes mellitus with other diabetic neurological complication spironolactone 25 mg oral tablet 0.5, tablet, By Mouth, Daily, # 45 tablet, Refills 1, Maintenance, 06/03/24 11:46:00 AM EDT, Route to Pharmacy Electronically, [id number], 170, cm, 05/18/24 16:46:00 EDT, Height, 118.5, kg, 03/02/24 4:47:00 EDT, Dry Weight Start Date: 06/03/24 Status: Ordered Quantity: 45.0 Unit: tablet Repeat number: 1 triamcinolone 0.1% topical cream 1 application, Topically, 2 times a day, maximum 14 days in a row to rash on hand, # 60 Gm, 1 Refills, Maintenance, 09/27/24 11:13:00 AM EST, Cream, [id number], Partial fill upon patient request if the prescription is for a schedule II opioid drug., 1 application Topically 2 times a day,Instr:maximum 14 days in a row to rash on hand, 170, cm, 09/27/24 10:31:00 EST, Height, 116, kg, 09/27/24 10:31:00 EST, Dry Weight Start Date: 09/27/24 Status: Ordered Quantity: 60.0 Unit: g Repeat number: 2 Trulicity Pen 1.5 mg/0.5 mL subcutaneous solution See Instructions, INJECT 0.5 ML SUBCUTANEOUSLY EVERY WEEK*ROTATE INJECTION SITES, # 6 Unknown, 1 Refills, Maintenance, 07/06/24 12:40:00 PM EDT, [id number], 170, cm, 05/18/24 16:46:00 EDT, Height, 118.5, kg, 03/02/24 4:47:00 EDT, Dry Weight Start Date: 07/06/24 Status: Ordered Quantity: 6.0 Unit: Unknown Repeat number: 2 Problem List Condition Confirmation Course Effective Dates Status H ealth Status Informant Castaneda's palsy 1 Confirmed Active Benign hypertension Confirmed Active Eosinophilic esophagitis Confirmed Active Chronic GERD Confirmed Active Generalized anxiety disorder Confirmed Active Chronic gout Confirmed Active History of shingles 2 Confirmed Active Hydronephrosis 3 Confirmed Active Hyperlipidemia Confirmed Active Kidney stones Confirmed Active Severe obesity Confirmed Active Type II diabetes mellitus with peripheral autonomic neuropathy Confirmed Active 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 Confirmed Active Vitamin D deficiency Confirmed Active 1bilateral, unclear etiology 3per urology note 2023 Social History Social History Type Response Smoking Status Never (less than 100 in lifetime) entered on: 06/18/21 Sex Sex Representation Male (finding) Patient Care team information Care Team Personnel Name: Jeimy Conte Position: [facility] Office Staff Member Role: Lifetime Consulting Physician Name: Randy Fairchild MD Position: [facility] Physician - Primary Care Member Role: PCP Address: [address] [place] [address] Adult [place] [address]- Telecom: Care Team Related Persons Name: LUIS KNIGHT Name: PAVEL KNIGHT Insurance Providers Guarantor name: ROGERIO KNIGHT [facility] Plan Information #: 1 Payer: [facility] POS Member Number: NA Policy Number: NA Group Number: NA
--- OUTSIDE RECORDS SUMMARY | 2024-11-07 08:23 | XMS_ITS | Continuity of Care Document ---
Author Organization [facility] Address [address] [place] [address]- Care Team Providers Care Tool Crib Attendant Name Role Phone Devorah RANDALL, Randy Martinez Primary Care Physician [phone] Encounter [facility] Date(s): 10/04/24 - 11/03/24 [facility] [address] [place], [place] [address] Encounter Type: Triage Allergies, Adverse Reactions, [...] vaccine, inactivated 08/18/12 Alexandre rded SARS-CoV-2 mRNA ([id number]) vax 12/31/21 Given SARS-CoV-2 (COVID-19) mRNA BNT-162b2 vac 12/24/20 Recorded SARS-CoV-2 (COVID-19) mRNA BNT-162b2 vac 12/03/20 Recorded 1Result Comment: 50477-638-76 2Result Comment: [facility]: [id number] Medications allopurinol 300 mg oral tablet 1, tablet, By Mouth, Daily, # 90 tablet, Refills 1, Maintenance, 07/28/24 5:32:00 PM EDT, Route to Pharmacy Electronically, [facility], 170, cm, 05/18/24 16:46:00 EDT, Height, 118.5, kg, 03/02/24 4:47:00 EDT, Dry Weight Start Date: 07/28/24 Status: Ordered Quantity: 90.0 Unit: tablet Repeat number: 1 aspirin 81 mg oral delayed release tablet 1 tablet = 81 mg, By Mouth, Daily, # 90 tablet, 1 Refills, Maintenance, 08/04/22 1:20:00 PM EDT, EC Tablet, [facility]/pharmacy #[id number], Partial fill upon patient request if the prescription is for a schedule II opioid drug., 170, cm, 06/17/22 10:11:00 EDT, Height, 120.1, kg, 04/11/22 11:07:00 EDT, Dry Weight Start Date: 08/04/22 Status: Ordered Quantity: 90.0 Unit: tablet Repeat number: 2 atenolol 100 mg oral tablet 1 tablet, By Mouth, Daily, # 90 tablet, 1 Refills, Maintenance, 08/08/24 4:39:00 PM EDT, [facility], 170, cm, 05/18/24 16:46:00 EDT, Height, 118.5, kg, 03/02/24 4:47:00 EDT, Dry Weight Start Date: 08/08/24 Status: Ordered Quantity: 90.0 Unit: tablet Repeat number: 1 atorvastatin 10 mg oral tablet 1 tablet, By Mouth, Daily at bedtime, # 90 tablet, 1 Refills, Maintenance, 08/08/24 4:39:00 PM EDT, [facility], 170, cm, 05/18/24 16:46:00 EDT, Height, 118.5, kg, 03/02/24 4:47:00 EDT, Dry Weight Start Date: 08/08/24 Status: Ordered Quantity: 90.0 Unit: tablet Repeat number: 1 Januvia 100 mg oral tablet 1 tablet, By Mouth, Daily, # 90 tablet, 1 Refills, Maintenance, 08/29/24 8:36:00 PM EDT, [facility], 170, cm, 05/18/24 16:46:00 EDT, Height, 118.5, kg, 03/02/24 4:47:00 EDT, Dry Weight Start Date: 08/29/24 Status: Ordered Quantity: 90.0 Unit: tablet Repeat number: 1 levothyroxine 0.1 mg oral tablet 1 tablet, By Mouth, Daily before breakfast, # 90 tablet, 1 Refills, Maintenance, 08/19/24 12:31:00 AM EDT, [facility]/pharmacy #[id number], 170, cm, 05/18/24 16:46:00 EDT, Height, 118.5, kg, 03/02/24 4:47:00 EDT, Dry Weight Start Date: 08/19/24 Status: Ordered Quantity: 90.0 Unit: tablet Repeat number: 2 lisinopril 20 mg oral tablet 10 mg, 0.5, tablet, By Mouth, Daily, dose reduction 09/27/24 due to hyperkalemia, # 90 tablet, Refills 1, Maintenance, 06/03/24 11:46:00 AM EDT, Route to Pharmacy Electronically, [facility] STORE [id number], 170, cm, 05/18/24 16:46:00 EDT, Height, 118.5, kg, 03/02/24 4:47:00 EDT, Dry Weight Start Date: 06/03/24 Status: Ordered Quantity: 90.0 Unit: tablet Repeat number: 1 magnesium oxide 400 mg oral tablet 1 tablet, By Mouth, Daily, # 90 tablet, 1 Refills, Maintenance, 05/17/24 1:47:00 PM EDT, [facility]/pharmacy #[id number], 170, cm, 05/17/24 13:11:00 EDT, Height, 118.5, kg, 03/02/24 4:47:00 EDT, Dry Weight Start Date: 05/17/24 Status: Ordered Quantity: 90.0 Unit: tablet Repeat number: 2 metFORMIN 1000 mg oral tablet 1 tablet, By Mouth, 2 times a day, DOSE INCREASE., # 180 tablet, 3 Refills, Maintenance, 11/02/24 9:21:00 AM EST, [facility] 78[facility], 170, cm, 09/27/24 10:31:00 EST, Height, 116, kg, 09/27/24 10:31:00 EST, Dry Weight Start Date: 11/02/24 Status: Ordered Quantity: 180.0 Unit: tablet Repeat number: 1 One Touch Ultra 2 Glucose Meter See [...] 11:46:00 AM EDT, Route to Pharmacy Electronically, [facility] 265[facility], 170, cm, 05/18/24 16:46:00 EDT, Height, 118.5, [...] Care Team Personnel Name: Jeimy Conte Position: [facility] Office Staff Member Role: Lifetime Consulting Physician Name: Randy Fairchild MD Position: [facility] Physician - Primary Care Member Role: PCP Address: [address] [place] [address] Adult & Pediatric Medicine [place], [place] [address] Telecom: Care Team Related Persons Name: LUIS KNIGHT Name: PAVEL KNIGHT Insurance Providers Guarantor name: ROGERIO KNIGHT [facility] Plan Information #: 1 Payer: [facility] POS Member Number: NA Policy Number: NA Group Number: NA
--- OUTSIDE RECORDS SUMMARY | 2024-11-07 08:23 | XMS_ITS | Continuity of Care Document ---
Author Organization [facility] Address [address] [place] [address]- Care Team Providers Care Usability Strategist Name Role Phone Devorah RANDALL, Randy Martinez Primary Care Physician Encounter [facility] Date(s): 10/06/24 - 11/05/24 [facility] [address] [place], [place] [address] Encounter Type: Triage Allergies, Adverse Reactions, Alerts [...] vaccine, inactivated 08/18/12 Alexandre rded SARS-CoV-2 mRNA (grcgpli-ahsx-iwkzj) vax 12/31/21 Given SARS-CoV-2 (COVID-19) mRNA BNT-162b2 vac 12/24/20 Recorded SARS-CoV-2 (COVID-19) mRNA BNT-162b2 vac 12/03/20 Recorded 1Result Comment: [id number] 2Result Comment: [facility]: [id number] Medications allopurinol 300 mg oral tablet 1, tablet, By Mouth, Daily, # 90 tablet, Refills 1, Maintenance, 07/28/24 5:32:00 PM EDT, Route to Pharmacy Electronically, [facility], 170, cm, 05/18/24 16:46:00 EDT, Height, 118.5, kg, 03/02/24 4:47:00 EDT, Dry Weight Start Date: 07/28/24 Status: Ordered Quantity: 90.0 Unit: tablet Repeat number: 1 aspirin 81 mg oral delayed release tablet 1 tablet = 81 mg, By Mouth, Daily, # 90 tablet, 1 Refills, Maintenance, 08/04/22 1:20:00 PM EDT, EC Tablet, [facility]/pharmacy #[id number], Partial fill upon patient request [...] Maintenance, 08/08/24 4:39:00 PM EDT, [facility], 170, cm, 05/18/24 16:46:00 EDT, Height, 118.5, kg, 03/02/24 4:47:00 EDT, Dry Weight Start Date: 08/08/24 Status: Ordered Quantity: 90.0 Unit: tablet Repeat number: 1 atorvastatin 10 mg oral tablet 1 tablet, By Mouth, Daily at bedtime, # 90 tablet, 1 Refills, Maintenance, 08/08/24 4:39:00 PM EDT, [facility], 170, cm, 05/18/24 16:46:00 EDT, Height, 118.5, kg, 03/02/24 4:47:00 EDT, Dry Weight Start Date: 08/08/24 Status: Ordered Quantity: 90.0 Unit: tablet Repeat number: 1 Januvia 100 mg oral tablet 1 tablet, By Mouth, Daily, # 90 tablet, 1 Refills, Maintenance, 08/29/24 8:36:00 PM EDT, [facility], 170, cm, 05/18/24 16:46:00 EDT, Height, 118.5, kg, 03/02/24 4:47:00 EDT, Dry Weight Start Date: 08/29/24 Status: Ordered Quantity: 90.0 Unit: tablet Repeat number: 1 levothyroxine 0.1 mg oral tablet 1 tablet, By Mouth, Daily before breakfast, # 90 tablet, 1 Refills, Maintenance, 08/19/24 12:31:00 AM EDT, [facility]/pharmacy #[id number], 170, cm, 05/18/24 16:46:00 EDT, Height, 118.5, kg, 03/02/24 4:47:00 EDT, Dry Weight Start Date: 08/19/24 Status: Ordered Quantity: 90.0 Unit: tablet Repeat number: 2 lisinopril 20 mg oral tablet 10 mg, 0.5, tablet, By Mouth, Daily, dose reduction 09/27/24 due to hyperkalemia, # 90 tablet, Refills 1, Maintenance, 06/03/24 11:46:00 AM EDT, Route to Pharmacy Electronically, [facility] 69[facility], 170, cm, 05/18/24 16:46:00 EDT, Height, 118.5, kg, 03/02/24 4:47:00 EDT, Dry Weight Start Date: 06/03/24 Status: Ordered Quantity: 90.0 Unit: tablet Repeat number: 1 magnesium oxide 400 mg oral tablet 1 tablet, By Mouth, Daily, # 90 tablet, 1 Refills, Maintenance, 05/17/24 1:47:00 PM EDT, [facility]/pharmacy #0838, 170, cm, 05/17/24 13:11:00 EDT, Height, 118.5, kg, 03/02/24 4:47:00 EDT, Dry Weight Start Date: 05/17/24 Status: Ordered Quantity: 90.0 Unit: tablet Repeat number: 2 metFORMIN 1000 mg oral tablet 1 tablet, By Mouth, 2 times a day, DOSE INCREASE., # 180 tablet, 3 Refills, Maintenance, 11/02/24 9:21:00 AM EST, [facility], 170, cm, 09/27/24 10:31:00 EST, Height, 116, [...] 11:46:00 AM EDT, Route to Pharmacy Electronically, [facility] 46[facility], 170, cm, 05/18/24 16:46:00 EDT, Height, 118.5, [...] Care Team Personnel Name: Jeimy Conte Position: [facility] Office Staff Member Role: Lifetime Consulting Physician Name: Randy Fairchild MD Position: [facility] Physician - Primary Care Member Role: PCP Address: [address] [place] [address] Adult & Pediatric Medicine [place], [place] [address] Telecom: Care Team Related Persons Name: LUIS KNIGHT Name: PAVEL KNIGHT Insurance Providers Guarantor name: ROGERIO KNIGHT [facility] Plan Information #: 1 Payer: [facility] POS Member Number: NA Policy Number: NA Group Number: NA
--- OUTSIDE RECORDS SUMMARY | 2024-11-07 08:23 | XMS_ITS | Continuity of Care Document ---
Author Organization [facility] Address [address] [place] [address]- Care Team Providers Care Tow Driver Name Role Phone Devorah RANDALL, Randy Martinez Primary Care Physician Encounter [facility] Date(s): 09/29/24 - 10/29/24 [facility] [address] [place], [place] [address] Encounter Type: Triage Allergies, Adverse Reactions, [...] vaccine, inactivated 08/18/12 Alexandre rded SARS-CoV-2 mRNA ([id number]) vax 12/31/21 Given SARS-CoV-2 (COVID-19) mRNA BNT-162b2 vac 12/24/20 Recorded SARS-CoV-2 (COVID-19) mRNA BNT-162b2 vac 12/03/20 Recorded 1Result Comment: [id number] 2Result Comment: [facility]: [id number] Medications allopurinol 300 mg oral tablet 1, tablet, By Mouth, Daily, # 90 tablet, Refills 1, Maintenance, 07/28/24 5:32:00 PM EDT, Route to Pharmacy Electronically, [facility], 170, cm, 05/18/24 16:46:00 EDT, Height, 118.5, kg, 03/02/24 4:47:00 EDT, Dry Weight Start Date: 07/28/24 Status: Ordered Quantity: 90.0 Unit: tablet Repeat number: 1 aspirin 81 mg oral delayed release tablet 1 tablet = 81 mg, By Mouth, Daily, # 90 tablet, 1 Refills, Maintenance, 08/04/22 1:20:00 PM EDT, EC Tablet, [facility]/pharmacy #[id number], Partial fill upon [...] Maintenance, 08/08/24 4:39:00 PM EDT, [facility], 170, cm, 05/18/24 16:46:00 EDT, Height, 118.5, kg, 03/02/24 4:47:00 EDT, Dry Weight Start Date: 08/08/24 Status: Ordered Quantity: 90.0 Unit: tablet Repeat number: 1 atorvastatin 10 mg oral tablet 1 tablet, By Mouth, Daily at bedtime, # 90 tablet, 1 Refills, Maintenance, 08/08/24 4:39:00 PM EDT, [facility], 170, cm, 05/18/24 16:46:00 EDT, Height, 118.5, kg, 03/02/24 4:47:00 EDT, Dry Weight Start Date: 08/08/24 Status: Ordered Quantity: 90.0 Unit: tablet Repeat number: 1 Januvia 100 mg oral tablet 1 tablet, By Mouth, Daily, # 90 tablet, 1 Refills, Maintenance, 08/29/24 8:36:00 PM EDT, [facility], 170, cm, 05/18/24 16:46:00 EDT, Height, 118.5, kg, 03/02/24 4:47:00 EDT, Dry Weight Start Date: 08/29/24 Status: Ordered Quantity: 90.0 Unit: tablet Repeat number: 1 levothyroxine 0.1 mg oral tablet 1 tablet, By Mouth, Daily before breakfast, # 90 tablet, 1 Refills, Maintenance, 08/19/24 12:31:00 AM EDT, [facility]/pharmacy #0838, 170, cm, 05/18/24 16:46:00 EDT, Height, 118.5, kg, 03/02/24 4:47:00 EDT, Dry Weight Start Date: 08/19/24 Status: Ordered Quantity: 90.0 Unit: tablet Repeat number: 2 lisinopril 20 mg oral tablet 10 mg, 0.5, tablet, By Mouth, Daily, dose reduction 09/27/24 due to hyperkalemia, # 90 tablet, Refills 1, Maintenance, 06/03/24 11:46:00 AM EDT, Route to Pharmacy Electronically, [facility] ST[facility] 92[facility], 170, cm, 05/18/24 16:46:00 EDT, Height, 118.5, kg, 03/02/24 4:47:00 EDT, Dry Weight Start Date: 06/03/24 Status: Ordered Quantity: 90.0 Unit: tablet Repeat number: 1 magnesium oxide 400 mg oral tablet 1 tablet, By Mouth, Daily, # 90 tablet, 1 Refills, Maintenance, 05/17/24 1:47:00 PM EDT, [facility]/pharmacy #0838, 170, cm, 05/17/24 13:11:00 EDT, Height, 118.5, kg, 03/02/24 4:47:00 EDT, Dry Weight Start Date: 05/17/24 Status: Ordered Quantity: 90.0 Unit: tablet Repeat number: 2 metFORMIN 1000 mg oral tablet 1 tablet = 1,000 mg, By Mouth, 2 times a day, dose increase, # 180 tablet, 3 Refills, Maintenance, 01/25/24 9:17:00 AM EST, Tablet, [facility]/pharmacy #[id number], Partial fill upon [...] 11:46:00 AM EDT, Route to Pharmacy Electronically, [facility], 170, cm, 05/18/24 16:46:00 EDT, Height, 118.5, [...] Care Team Personnel Name: Jeimy Conte Position: [facility] Office Staff Member Role: Lifetime Consulting Physician Name: Randy Fairchild MD Position: [facility] Physician - Primary Care Member Role: PCP Address: [address] [place] [address] Adult & [place] [address]- Telecom: Care Team Related Persons Name: LUIS KNIGHT Name: PAVEL KNIGHT Insurance Providers Guarantor name: ROGERIO KNIGHT [facility] Plan Information #: 1 Payer: [facility] POS Member Number: NA Policy Number: NA Group Number: NA
--- NOTE | 2024-11-07 08:25 | MHC.OFFVIS ---
Intake Visit Reasons: 6m/US/labs Intake Note: Patient presents today for follow up visit on: hydronephrosis, kidney stones, ultrasound and lab results Imagin09/13/24 BUN: 25; CREA: 1.13 Urology Medications: none Blood Thinner: aspirin Tin Pot Operator Required: No Accompanied by: Self / Same As Patient Allergies No Known Allergies Allergy (Verified 11/07/24 11:09) Medication List - Last Reconciled 11/07/[address] Ordoñez [facility] allopurinol 300 mg PO DAILY aspirin 325 mg PO DAILY atenolol 100 mg PO DAILY atorvastatin 10 mg PO DAILY dulaglutide (Trulicity) 1.5 mg subcut QWEEK fluticasone propionate 50 mcg/actuation 1 spray intranasal BID levothyroxine 100 mcg PO QAM lisinopril 20 mg PO DAILY magnesium oxide 400 mg PO DAILY metformin 1,000 mg PO DAILY sitagliptin phosphate (Januvia) 100 mg PO DAILY spironolactone 12.5 mg PO DAILY HPI Comments Details: Kit is a very pleasant 59-year-old male patient of Dr. Fairchild. He has a PMH of Castaneda's palsy, hypertension, GERD, gout, anxiety, hyperlipidemia, kidney stones, obesity, diabetes type 2, vitamin-D deficiency and peripheral neuropathy. He presents to the office today for a follow up of his nephrolithiasis and left-sided hydronephrosis. Recent renal imaging results reviewed with the patient today......................................... Recent BUN and creatinine results reviewed with the patient today as noted and trended below. When asked she currently denies any bothersome urinary issues or concerns. Previous workup has included a Lasix renogram 09/14 as patient with longstanding history of severe left-sided hydronephrosis. Imaging noted the relative function of the 2 kidneys based on a 2-3 minute images are: Left 0% and right 100%. The left kidney is absent or nonfunctioning. No significant flow or function of the kidney is visualized. The right kidney with normal perfusion and function no hydronephrosis or outflow obstruction. BUN: 04/13 25, 09/14 33 03/16 27, 11/15 25 Creatinine: 04/13 1.1, 09/14 1.48, 03/16 1.20, 04/15 1.13 PSA: 03/16 1.0. When asked patient reports to be following up with Dr. Haley for nephrology as well as his PCP. He reports recent blood work noted hyperkalemia and he was prescribed a medication and blood work was reassessed and noted to be within normal limits. Patient previously followed with Dr. Mathis for his longstanding history of nephrolithiasis. 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 He otherwise denies incontinence, nocturia, hematuria, dysuria, foul smelling urine, changes to urinary stream, flank pain, fever, and or chills. He does however report urinary urgency and frequency however does not find this bothersome to him at this time and relates this to his increase in water intake as he drinks plenty of water daily for stone prevention. He is happy with his current voiding parameters. In office urinalysis results reviewed with the patient today. Discussed at length importance of following up with Nephrology and keeping scheduled appointments as well as continuing to drink plenty of water daily in attempt to avoid nephrolithiasis. He otherwise denies any bothersome urinary issues or concerns at this time. PENDING SALE TO [facility] Medical History Vitamin D deficiency Peripheral neuropathy Diabetic neuropathy associated with type 2 diabetes mellitus Obesity Recurrent kidney stones Hyperlipidemia Anxiety Gout GERD (gastroesophageal reflux disease) Hypertension Castaneda's palsy Review of Systems Const Reports as per HPI Eyes Reports no additional complaints ENT Reports no additional complaints Card Reports as per HPI Resp Reports no additional complaints GI Reports as per HPI Reports as per HPI Musc Reports no additional complaints Neuro Reports as per HPI Psych Reports as per HPI Endo Reports as per HPI Physical Exam Const General: cooperative, healthy appearing, comfortable, no acute distress, well developed, alert and awake Nutritional Appearance: overweight Orientation/consciousness: patient oriented x3 Limitations: no limitations HEENT Head: Yes normal to inspection, Yes normocephalic and Yes atraumatic Ears: hearing grossly normal bilaterally Eyes General: appearance normal, both eyes and all related structures Neck Neck: Yes normal visual inspection and Yes trachea midline Chest Chest palpation & inspection: normal inspection of the chest Resp Effort & Inspection: normal respiratory effort and able to speak in complete sentences Cardio Rate: regular rate GI Inspection: Yes normal to inspection General: Yes no CVA tenderness Back/Spine/Pelvis Back: no CVA tenderness Skin General skin exam: no rashes or lesions noted Neuro General: patient oriented x3 Extrem General: Yes normal to inspection Psych Appearance: grossly normal and well kempt Mental Status: mental status grossly normal Speech and movement: Normal speech and movement present and Clear speech present Affect: normal affect Attitude: cooperative Thought process: Normal thought process present Thought content: Normal thought content present Insight: Good insight present (Psych) Judgement: Good judgement present (Psych) Results AMB Urinalysis, Automated UA Leukoctes 0 Jose/uL Last Edit by [employer] [facility] on 11/07/24 08:42 UA Nitrite Negative Last Edit by [employer] [facility] on 11/07/24 08:42 UA Urobilinogen 0.2 mg/dL Last Edit by [employer] [facility] on 11/07/24 08:42 UA Protein 0 mg/dL Last Edit by [employer] [facility] on 11/07/24 08:42 UA pH 6.0 Last Edit by [employer] [facility] on 11/07/24 08:42 UA Blood 0 Nahum/uL Last Edit by [employer] [facility] on 11/07/24 08:42 UA Specific Donnelly 1.025 Last Edit by [employer] [facility] on 11/07/24 08:42 UA Ketone Negative Last Edit by [employer] [facility] on 11/07/24 08:42 UA Bilirubin 0 mg/dL Last Edit by [employer] [facility] on 11/07/24 08:42 UA Glucose 0 mg/dL Last Edit by [employer] [facility] on 11/07/24 08:42 Results Reviewed Results Reviewed: Laboratory Last Values Urine pH (Auto) 6.0 11/07/24 08:41 Specific Donnelly (Auto) 1.025 11/07/24 08:41 Urine Protein (Auto) 0 mg/dL 11/07/24 08:41 Glucose (UA)(Auto) 0 mg/dL 11/07/24 08:41 Urine Ketones (Auto) Negative 11/07/24 08:41 Urine Blood (Auto) 0 Nahum/uL 11/07/24 08:41 Urine Nitrite (Auto) Negative 11/07/24 08:41 Urine Bilirubin (Auto) 0 mg/dL 11/07/24 08:41 Urine Urobilinogen (Auto) 0.2 mg/dL 11/07/24 08:41 Leukocyte Esterase (Auto) 0 Jose/uL 11/07/24 08:41 Assessment & Plan Assessment & Plan (1) Hydronephrosis: Code(s): N13.30 - Unspecified hydronephrosis Category: Medical (2) Recurrent kidney stones: Code(s): N20.0 - Calculus of kidney Category: Medical Plan In office urinalysis results reviewed with the patient today; as noted above. Recent renal imaging results reviewed with the patient today; as noted above. BUN and creatinine results reviewed and trended with the patient as noted above. Patient currently denies any bothersome urinary issues or concerns. Discussed, educated, and stressed the importance of drinking plenty of water daily. Will obtain renal ultrasound in 1 year Will obtain BUN, creatinine, and PSA 1 year Follow-up in 1 year with imaging and labs to be completed prior; or sooner with any issues, concerns, and or questions. Orders: Orders US renal BI 1 Year N13.30 - Unspecified hydronephrosis, N20.0 - Calculus of kidney Creatinine 1 Year N13.30 - Unspecified hydronephrosis AMB Urinalysis Automated Today Z13.9 - Encounter for screening, unspecified Blood Urea Nitrogen 1 Year N13.30 - Unspecified hydronephrosis Prostate Specific Antigen 1 Year N40.0 - Benign prostatic hyperplasia without lower urinary tract symptoms Patient Instructions: The patient had an opportunity to ask questions regarding the treatment plan. All questions were answered. Physical exam, labs, and imaging were discussed and reviewed in detail. As well as risks, benefits, and discussion of treatment choices. No major barriers to understanding were identified. The patient expressed understanding and agreement with the above treatment plan. The patient was made aware they should contact our office by phone for worsening of their current condition, the appearance of new symptoms, or with any questions or concerns. Compliance is encouraged with any medications and follow up testing that is ordered. It is a privilege to be allowed the opportunity to participate in? your urological care.? Again, if you have any questions or concerns If you have any questions or concerns please do not hesitate to contact me. The office is [phone]. This note is constructed using voice recognition software. While every effort has been made to ensure accuracy assistant professor of criminal justice errors may have been included. Yours sincerely, MATA Fair-NATALIA Coding Level of Care Code Est Pt Level 3 (31032) Complex EM visit Add On G2211 Diagnoses Hydronephrosis N13.30 Recurrent kidney stones N20.0
== END 2024-11-07 08:52 | disposition home or self-care (01) ==
PROVIDERS: PCP Internal Medicine Sports Medicine; Visit Provider Nurse Practitioner Family
DX: Z13.9 Encounter for screening, unspecified (principal)

== ENCOUNTER → 2024-11-07 08:21 | Outpatient (BNVA) | payer OTHER, SELFPAY | PROVIDERS: PCP Internal Medicine Sports Medicine; Visit Provider Nurse Practitioner Family | DX: N13.30 Unspecified hydronephrosis (principal); N20.0 Calculus of kidney | CPT/HCPCS: 81003; 99212 ==

== ENCOUNTER 2025-11-01 10:52 | Outpatient (REF) | payer OTHER, SELFPAY ==
--- NOTE | ~2025-11-01 | US_ITS ---
EXAMINATION: US RETROPERITONEAL LIMITED (RENAL ONLY) CLINICAL INFORMATION: N20.0. Left-sided hydronephrosis. Nonfunctioning left kidney. COMPARISON: September 13, 2024, March 17, 2024 and June 17, 2023. Correlated to nuclear scan renal flow function dated September 08, 2023. TECHNIQUE: Real-time ultrasound of the kidneys using grayscale technique. FINDINGS: RIGHT KIDNEY: 15 x 6 x 6 cm (SAG x AP x TRV). Volume: 297 cc. Normal echotexture. Renal cortical thickness is normal. No hydronephrosis or nephrolithiasis. No gross solid or cystic lesion. LEFT KIDNEY: 16 x 7 x 6 cm (SAG x AP x TRV). Volume: 335 cc. Dilatation of the pelvicalyceal system. Renal cortical thinning. No gross renal parenchyma. No gross solid lesion or nephrolithiasis. US/US renal BI IMPRESSION: Severe hydronephrosis without renal parenchyma, left kidney. Normal right kidney.. Electronically signed by: Kevyn Kelly MD 11/01/2025 11:47 AM S[facility]
== END 2025-11-01 10:53 | disposition home or self-care (01) ==
LOC: HO.US 10:52
PROVIDERS: Visit Provider Nurse Practitioner Family
DX: N13.2 Hydronephrosis with renal and ureteral calculous obstruction (principal)
CPT/HCPCS: 76775

== ENCOUNTER → 2025-11-01 10:53 | Outpatient (BNV) | payer OTHER, SELFPAY | PROVIDERS: Visit Provider Radiology Diagnostic Radiology | DX: N13.2 Hydronephrosis with renal and ureteral calculous obstruction (principal) | CPT/HCPCS: 76775 ==

== ENCOUNTER 2025-11-07 09:14 | Outpatient (AMB) | payer OTHER, SELFPAY ==
--- NOTE | 2025-11-07 09:17 | A.OFFVIS_ITS ---
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 Fairchild. He has a PMH of Castaneda's palsy, hypertension, GERD, gout, anxiety, hyperlipidemia, kidney stones, obesity, diabetes type 2, vitamin-D deficiency and peripheral neuropathy. He presents to the office today for a follow up of his nephrolithiasis and left-sided hydronephrosis. Recent renal imaging results reviewed with the patient today. Renal ultrasound 11/16 severe hydronephrosis without renal parenchymal left kidney. Normal right kidney. No gross lesions or hydronephrosis noted bilaterally. In discussion with the patient today he continues to follow-up with Dr. Haley as planned. He denies having had any bothersome urinary issues or concerns since his last office visit here approximately 1 year ago. Most recent BUN, creatinine, and PSA lab results reviewed with the patient today as noted and trended below. Previous workup has included a Lasix renogram 09/14 as patient with longstanding history of severe left-sided hydronephrosis. Imaging noted the relative function of the 2 kidneys based on a 2-3 minute images are: Left 0% and right 100%. The left kidney is absent or nonfunctioning. No significant flow or function of the kidney is visualized. The right kidney with normal perfusion and function no hydronephrosis or outflow obstruction. BUN: 04/13 25, 09/14 33 03/16 27, 11/15 25, 11/16 26 Creatinine: 04/13 1.1, 09/14 1.48, 03/16 1.20, 04/15 1.13, 11/16 1.12 PSA: 03/16 1.0, 11/16 1.0 Patient previously followed with Dr. Mathis for his longstanding history of nephrolithiasis. 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 He otherwise denies incontinence, nocturia, hematuria, dysuria, foul smelling urine, changes to urinary stream, flank pain, fever, and or chills. He does however report urinary urgency and frequency however does not find this bothersome to him at this time and relates this to his increase in water intake as he drinks plenty of water daily for stone prevention. He is happy with his current voiding parameters. In office urinalysis results reviewed with the patient today. Discussed at length importance of following up with Nephrology and keeping scheduled appointments as well as continuing to drink plenty of water daily in attempt to avoid nephrolithiasis. He reports having recently started Ozempic and attempt to lose weight. He otherwise denies any bothersome urinary issues or concerns at this time. FOR[facility]LY [facility], LATER [facility] Medical History Vitamin D deficiency Peripheral neuropathy Diabetic neuropathy associated with type 2 diabetes mellitus Obesity Recurrent kidney stones Hyperlipidemia Anxiety Gout GERD (gastroesophageal reflux disease) Hypertension Castaneda's palsy Review of Systems Const All systems reviewed & are unremarkable except as noted in HPI and below Physical Exam Const General: cooperative, healthy appearing, comfortable, no acute distress, well developed, alert and awake Nutritional Appearance: overweight Orientation/consciousness: patient oriented x3 Limitations: no limitations HEENT Head: Yes normal to inspection, Yes normocephalic and Yes atraumatic Ears: hearing grossly normal bilaterally Eyes General: appearance normal, both eyes and all related structures Neck Neck: Yes normal visual inspection and Yes trachea midline Chest Chest palpation & inspection: normal inspection of the chest Resp Effort & Inspection: normal respiratory effort and able to speak in complete sentences Cardio Rate: regular rate GI Inspection: Yes normal to inspection General: Yes no CVA tenderness Back/Spine/Pelvis Back: no CVA tenderness Skin General skin exam: no rashes or lesions noted Neuro General: patient oriented x3 Extrem General: Yes normal to inspection Psych Appearance: grossly normal and well kempt Mental Status: mental status grossly normal Speech and movement: Normal speech and movement present and Clear speech present Affect: normal affect Attitude: cooperative Thought process: Normal thought process present Thought content: Normal thought content present Insight: Good insight present (Psych) Judgement: Good judgement present (Psych) Results AMB Urinalysis, Automated UA Leukoctes 0 Jose/uL Last Edit by CHAVA Caba on 11/07/25 09:35 UA Nitrite Negative Last Edit by CHAVA Caba on 11/07/25 09:35 UA Urobilinogen 0.2 mg/dL Last Edit by CHAVA Caba on 11/07/25 09:3 5 UA Protein 0 mg/dL Last Edit by CHAVA Caba on 11/07/25 09:35 UA pH 6.0 Last Edit by Jimbo Rockwell CCM on 11/07/25 09:35 UA Blood 0 Nahum/uL Last Edit by CHAVA Caba on 11/07/25 09:35 UA Specific [place] 1.015 Last Edit by CHAVA Caba on 11/07/25 09: 35 UA Ketone Negative Last Edit by CHAVA Caba on 11/07/25 09:35 UA Bilirubin 0 mg/dL Last Edit by CHAVA Caba on 11/07/25 09:35 UA Glucose 0 mg/dL Last Edit by Jimbo Rockwell CCM on 11/07/25 09:35 Results Reviewed Results Reviewed: Laboratory Last Values Urine pH (Auto) 6.0 11/07/25 09:25 Specific [place] (Auto) 1.015 11/07/25 09:25 Urine Protein (Auto) 0 mg/dL 11/07/25 09:25 Glucose (UA)(Auto) 0 mg/dL 11/07/25 09:25 Urine Ketones (Auto) Negative 11/07/25 09:25 Urine Blood (Auto) 0 Nahum/uL 11/07/25 09:25 Urine Nitrite (Auto) Negative 11/07/25 09:25 Urine Bilirubin (Auto) 0 mg/dL 11/07/25 09:25 Urine Urobilinogen (Auto) 0.2 mg/dL 11/07/25 09:25 Leukocyte Esterase (Auto) 0 Jose/uL 11/07/25 09:25 Date of Service: 11/01/25 Procedure(s): US renal BI FINDINGS: RIGHT KIDNEY: 15 x 6 x 6 cm (SAG x AP x TRV). Volume: 297 cc. Normal echotexture. Renal cortical thickness is normal. No hydronephrosis or nephrolithiasis. No gross solid or cystic lesion. LEFT KIDNEY: 16 x 7 x 6 cm (SAG x AP x TRV). Volume: 335 cc. Dilatation of the pelvicalyceal system. Renal cortical thinning. No gross renal parenchyma. No gross solid lesion or nephrolithiasis. IMPRESSION: Severe hydronephrosis without renal parenchyma, left kidney. Normal right kidney.. Assessment & Plan Assessment & Plan (1) Hydronephrosis: Code(s): N13.30 - Unspecified hydronephrosis Category: Medical (2) Recurrent kidney stones: Code(s): N20.0 - Calculus of kidney Category: Medical Plan In office urinalysis results reviewed with the patient today; as noted above. Recent renal imaging results reviewed with the patient today; as noted above; will fax results to Dr. Haley for continuity of care BUN, creatinine, and PSA results reviewed and trended with the patient as noted above. Patient currently denies any bothersome urinary issues or concerns. Discussed, educated, and stressed the importance of drinking plenty of water daily. Will obtain renal ultrasound in 1 year. Will obtain BUN, creatinine, and PSA 1 year. Follow-up in 1 year with imaging and labs to be completed prior; or sooner with any issues, concerns, and or questions. Orders: Orders AMB Urinalysis Automated Today Z13.9 - Encounter for screening, unspecified Prostate Specific Antigen 1 Year N13.30 - Unspecified hydronephrosis, N20.0 - Calculus of kidney, N40.0 - Benign prostatic hyperplasia without lower urinary tract symptoms Blood Urea Nitrogen 1 Year N13.30 - Unspecified hydronephrosis, N20.0 - Calculus of kidney US renal BI 1 Year N20.0 - Calculus of kidney Creatinine 1 Year N13.30 - Unspecified hydronephrosis, N20.0 - Calculus of kidney Patient Instructions: The patient had an opportunity to ask questions regarding the treatment plan. A ll questions were answered. Physical exam, labs, and imaging were discussed and reviewed in detail. As well as risks, benefits, and discussion of treatment choices. No major barriers to understanding were identified. The patient expressed understanding and agreement with the above treatment plan. The patient was made aware they should contact our office by phone for worsening of their current condition, the appearance of new symptoms, or with any questions or concerns. Compliance is encouraged with any medications and follow up testing that is ordered. It is a privilege to be allowed the opportunity to participate in? your urological care.? Again, if you have any questions or concerns If you have any questions or concerns please do not hesitate to contact me. The office is [phone]. This note is constructed using voice recognition software. While every effort has been made to ensure accuracy home school liaison officer errors may have been included. Yours sincerely, LINDA Fair Coding Level of Care Code Est Pt Level 3 (33004) Add On Problem Visit Only Diagnoses Hydronephrosis N13.30 Recurrent kidney stones N20.0
== END 2025-11-07 10:03 | disposition home or self-care (01) ==
LOC: HO.HUSH 09:14
PROVIDERS: PCP Internal Medicine Sports Medicine; Visit Provider Nurse Practitioner Family
DX: N13.30 Unspecified hydronephrosis (principal); N20.0 Calculus of kidney; Z13.9 Encounter for screening, unspecified
CPT/HCPCS: 99213

== ENCOUNTER → 2025-11-07 09:14 | Outpatient (BNVA) | payer OTHER, SELFPAY | PROVIDERS: PCP Internal Medicine Sports Medicine; Visit Provider Nurse Practitioner Family | DX: N13.30 Unspecified hydronephrosis (principal); N20.0 Calculus of kidney; Z13.89 Encounter for screening for other disorder | CPT/HCPCS: 81003 ==